=== PATIENT | female | born 1990 | race Caucasian/White ===

== ENCOUNTER 2020-06-10 19:50 | Observation (INO) ==
[2020-06-10] MEDS ORDERED: Betamethasone Acet/SodPhos 30 MG/5 ML VIAL IM SCH (20:00)
== END 2020-06-10 20:20 | disposition home or self-care (01) ==
LOC: 1NENULAB
PROVIDERS: ADMIT Registered Nurse; ATTEND Registered Nurse

== ENCOUNTER 2020-06-15 09:12 | Observation (INO) | END 2020-06-15 12:20 | disposition home or self-care (01) | LOC: 1NENULAB | PROVIDERS: ADMIT Student in an Organized Health Care Education/Training Program; ATTEND Student in an Organized Health Care Education/Training Program ==

== ENCOUNTER → 2020-06-28 15:00 | Observation (INO) ==
[2020-06-28 14:45] LABS: Bilirubin,Urine Negative (Negative); Blood,Urine Negative (Negative); Clarity,Urine Clear (Clear); Color,Urine Colorless (Yellow); Glucose,Urine (UA) Normal (Normal); Ketones,Urine Trace mg/dL (Negative); Leukocyte Esterase,Urine Negative (Negative); Nitrite,Urine Negative (Negative); PH,Urine 6.5 pH Units (5.0-8.0); Protein,Urine Negative (Neg-Trace); Specific Gravity,Urine 1.008 (1.010-1.025); Urobilinogen,Urine Normal (Normal)
== END | disposition home or self-care (01) ==
LOC: 1NENULAB
PROVIDERS: ADMIT Student in an Organized Health Care Education/Training Program; ATTEND Student in an Organized Health Care Education/Training Program

== ENCOUNTER 2020-07-13 11:00 | Inpatient (IN) ==
[2020-07-13] MEDS ORDERED: Lidocaine 1% 20 ML MDV ID PRN (11:30)
[2020-07-13] MEDS ORDERED: Ondansetron 4 MG/2 ML VIAL IVP PRN (11:30)
[2020-07-13] MEDS ORDERED: Naloxone 0.4 MG/ML INJ IVP PRN (11:30)
[2020-07-13] MEDS ORDERED: D5% in Lactated Ringers 1,000 ML IVC SCH (11:30)
[2020-07-13] MEDS ORDERED: *HR* FentaNYL (PF) 100 MCG/2 ML VIAL IVP PRN (11:30)
[2020-07-13] MEDS ORDERED: Azithromycin 500 MG in 0.9 % Sodium Chloride 250 ML IVPB ONE (11:30)
[2020-07-13] MEDS ORDERED: Famotidine 20 MG/2 ML VIAL IVP PRN (11:30)
[2020-07-13] MEDS ORDERED: Metoclopramide 10 MG/2 ML VIAL IVP PRN (11:30)
[2020-07-13] MEDS ORDERED: FLU Vac QV 20-21 (6Month+)/PF 0.5 ML SYRINGE IM ONE (11:56)
[2020-07-13] MEDS ORDERED: EPHEDrine 50 MG/ML VIAL IVP PRN (12:16)
[2020-07-13] MEDS ORDERED: *HR* FentaNYL (PF) 100 MCG/2 ML VIAL EP ONE (12:16)
[2020-07-13] MEDS ORDERED: Bupivacaine-MPF 0.25% 10 ML VIAL EP ONE (12:16)
[2020-07-13] MEDS ORDERED: Ringers Solution, Lactated 1,000 ML ONE ×3 (12:17→21:09)
[2020-07-13] MEDS: Oxytocin 20 units/ LR 1000 mL 20 UNIT/1,000 ML BAG IVC SCH ×2 (12:20→22:20)
[2020-07-13 12:23] LABS: Basophils % 0.3 %; Eosinophils # 0.1 K/mcL (0.0-0.6); Hematocrit 25.8 % (35.3-44.9); Hemoglobin 7.8 g/dL (11.5-15.4); Immature Granulocytes % 0.7 % (0-4); Lymphocytes # 1.3 K/mcL (0.6-4.6); Lymphocytes % 18.5 %; Mean Corpuscular HGB Conc 30.2 g/dL (31.6-35.5); Mean Corpuscular Hemoglobin 28.8 pg (28.0-33.3); Mean Corpuscular Volume 95.2 fL (83.0-100.0); Monocytes # 0.6 K/mcL (0.0-1.3); Nucleated Red Blood Cells 0.9 /100 WBC (0); Platelet Count 212 K/mcL (140-400); Red Blood Count 2.71 M/mcL (3.82-4.97); Red Cell Distribution Width 17.6 % (11.5-14.5); Segmented Neutrophils % 71.5 %
[2020-07-13] MEDS ORDERED: miSOPROStoL 25 MCG TABLET PO PRN (12:38)
[2020-07-13 13:20] LABS: Amphetamine Screen,Urine Negative ng/mL (Cutoff=1000); Barbiturate Screen,Urine Negative ng/mL (Cutoff=200); Benzodiazepines Screen,Urine Negative ng/mL (Cutoff=200); Cannabinoid Screen,Urine Negative ng/mL (Cutoff = 50); Cocaine Screen,Urine Negative ng/mL (Cutoff= 300); Opiate Screen,Urine Negative ng/mL (Cutoff=300); Phencyclidine Screen,Urine Negative ng/mL (Cutoff=25)
[2020-07-13] MEDS: Epidural Premix (fent/bupiv) 110 ML EP SCH ×2 (14:53→20:08)
[2020-07-14] MEDS ORDERED: Benzocaine/Menthol 56 GM AEROSOL SPRAY TP PRN (02:02)
[2020-07-14] MEDS ORDERED: Oxytocin 20 units/ LR 1000 mL 20 UNIT/1,000 ML BAG IVC SCH (02:02)
[2020-07-14] MEDS ORDERED: Lanolin 7 G OINT...G. TP PRN (02:02)
[2020-07-14 05:34] LABS: Basophils % 0.2 %; Eosinophils # 0.1 K/mcL (0.0-0.6); Eosinophils % 0.9 %; Hematocrit 23.5 % (35.3-44.9); Hemoglobin 7.2 g/dL (11.5-15.4); Immature Granulocytes % 0.6 % (0-4); Lymphocytes # 1.7 K/mcL (0.6-4.6); Lymphocytes % 15.6 %; Mean Corpuscular HGB Conc 30.6 g/dL (31.6-35.5); Mean Corpuscular Hemoglobin 29.1 pg (28.0-33.3); Mean Corpuscular Volume 95.1 fL (83.0-100.0); Mean Platelet Volume 10.8 fL (9.4-12.4); Monocytes % 9.3 %; Neutrophils # 7.9 K/mcL (1.6-8.9); Nucleated Red Blood Cells 0.6 /100 WBC (0); Platelet Count 202 K/mcL (140-400); Red Blood Count 2.47 M/mcL (3.82-4.97); Red Cell Distribution Width 17.6 % (11.5-14.5); Segmented Neutrophils % 73.4 %
[2020-07-14 05:37] LABS: White Blood Count 10.7 K/mcL (4.3-11.1)
[2020-07-14] MEDS: Ibuprofen 600 MG TABLET PO SCH ×3 (07:54→20:14)
[2020-07-14] MEDS: Prenatal Vit/FA 1 EACH TABLET PO SCH (07:54)
[2020-07-14] MEDS: Acetaminophen 325 MG TABLET PO SCH (23:00)
[2020-07-15] MEDS: Ibuprofen 600 MG TABLET PO SCH ×2 (02:35→08:28)
[2020-07-15] MEDS: Acetaminophen 325 MG TABLET PO SCH ×2 (05:10→12:39)
[2020-07-15] MEDS: Prenatal Vit/FA 1 EACH TABLET PO SCH (08:28)
[2020-07-15 10:32] VITALS: BP 112/74
[2020-07-15] MEDS ORDERED: FLU Vac QV 20-21 (6Month+)/PF 0.5 ML SYRINGE IM ONE (12:17)
== END 2020-07-15 12:45 | disposition home or self-care (01) | DRG 560 ==
LOC: 1NENULAB 11:23 → 1NENUOBS 07-14 01:51
PROVIDERS: ADMIT Obstetrics & Gynecology; ATTEND Obstetrics & Gynecology